=== PATIENT | male | born 1950 | race Caucasian/White ===

== ENCOUNTER → 2023-09-04 09:47 | Outpatient (REF) | payer MEDICARE, OTHER, SELFPAY ==
[2023-09-04 12:29] LABS: % Basophils 0.6 % (0-2); % Eosinophils 1.5 % (0-6); % Immature Granulocytes 0.4 % (0-0.5); % Lymphocytes 21.2 % (20.5-51.1); % Monocytes 11.4 % (1.7-9.3); % Neutrophils 64.9 % (42.2-75.2); Absolute Eosinophils 0.1 10^3/uL (0-0.7); Absolute Lymphocytes 1.1 10^3/uL (1.2-3.4); Absolute Monocytes 0.6 10^3/uL (0.1-0.6); Absolute Neutrophils 3.4 10^3/uL (1.4-6.5); Hematocrit 39.2 % (39.0-52.0); Hemoglobin 12.5 g/dL (13.0-18.0); Mean Corp Hgb Conc. 31.9 g/dL (33.0-37.0); Mean Corpuscular Hgb 23.5 pg (27.0-31.0); Mean Corpuscular Volume 73.8 fL (80.0-94.0); Mean Platelet Volume 10.4 fL (7.4-10.4); Nucleated Red Blood Cells % 0 % (-); Platelet Count 373 10^3/uL (130-400); Red Blood Cell Count 5.31 10^6/uL (4.70-6.10); Red Cell Dist. Width 17.2 % (11.5-14.5); White Blood Cell Count 5.2 10^3/uL (4.8-10.8)
[2023-09-04 12:41] LABS: Erythrocyte Sed Rate 10 mm/hour (0-20)
[2023-09-04 12:55] LABS: ALT (SGPT) 36 U/L (0-50); AST (SGOT) 33 U/L (17-59); Albumin 3.9 g/dl (3.5-5.0); Alkaline Phosphatase 97 U/L (38-126); Blood Urea Nitrogen 19 mg/dl (9-20); Carbon Dioxide 25 mmol/L (22-30); Chloride 106 mmol/L (98-107); Creatine Phosphokinase 436 U/L (55-170); GGTP 19 U/L (15-73); Glucose 103 mg/dl (70-99); HDL Cholesterol 49 mg/dl; Iron 40 ug/dl (49-181); LDL Cholesterol, Calculated 162 mg/dl; Magnesium 2.2 mg/dl (1.6-2.3); Phosphorus 3.5 mg/dl (2.5-4.5); Potassium 4.5 mmol/L (3.5-5.1); Sodium 135 mmol/L (135-145); Total Bilirubin 0.6 mg/dl (0.2-1.3); Total Cholesterol 224 mg/dl (50-199); Total Protein 6.7 g/dl (6.3-8.2); Triglyceride 66 mg/dl (10-149); Uric Acid 6.7 mg/dl (3.5-8.5); Very Low Density Lipoprotein 13 mg/dl (0-30); eGFR > 60.00
[2023-09-04 13:04] LABS: Percent Saturation 9 % (20-50); Total Iron Binding Capacity 403 ug/dl (261-462)
[2023-09-04 13:15] LABS: Free T4 1.27 ng/dl (0.78-2.19); Total Thyroxine 8.66 ug/dl (5.5-11.0); Vitamin D, 25-OH*** 39.2 ng/mL (30-80)
[2023-09-04 13:25] LABS: FSH < 0.7 mIU/ml (1.55-9.74); Luteinizing Hormone < 0.22 mIU/ml (1.24-7.80)
[2023-09-04 13:32] LABS: Ferritin 8.5 ng/ml (17.9-464.0)
[2023-09-04 13:39] LABS: TSH 1.66 uIU/ml (0.47-4.68)
[2023-09-04 14:03] LABS: Folate > 20.0 ng/ml (2.76-20); Vitamin B12 801 pg/ml (239-931)
[2023-09-04 14:55] LABS: Glycohemoglobin (HgbA1c) 6.7 % (4.0-5.6)
[2023-09-04 17:02] LABS: Rheumatoid Agglutinin Less Than 10 IU (<10 IU)
[2023-09-07 00:46] LABS: Aldolase 6.3 U/L (1.2-7.6); Angiotensin-1-converting Enzym 51 U/L (16-85)
[2023-09-07 00:50] LABS: % Free Testosterone 1.7 % (1.6-2.9); Free Testosterone 75 pg/mL (47-244); Sex Hormone Binding Globulin 39 nmol/L (19-76); Total Testosterone 444 ng/dL (300-720)
[2023-09-07 12:38] LABS: Myeloperoxidase Antibody 0 AU/mL (0-19); Serine Protease-3, IgG 1 AU/mL (0-19)
[2023-09-07 22:41] LABS: Myelin Assoc Glycoprotein Ab <1000 TU (0-999)
[2023-09-08 03:08] LABS: Asialo-GM1 Antibody 66 IV (0-50); GD1a Antibody 7 IV (0-50); GD1b Antibodies 19 IV (0-50); GM1 Antibody 59 IV (0-50); GM2 Antibody 10 IV (0-50); GQ1b Antibodies 19 IV (0-50)
[2023-09-08 15:13] LABS: Vitamin B6 Results 122.6 nmol/L (20.0-125.0)
== END ==
LOC: HWLAB 09:47
PROVIDERS: ATTENDING PHYSICIAN Internal Medicine Endocrinology, Diabetes & Metabolism; FAMILY PHYSICIAN Internal Medicine Geriatric Medicine; REFERRING PHYSICIAN Psychiatry & Neurology Neurology
DX: E11.65 Type 2 diabetes mellitus with hyperglycemia (principal); D51.9 Vitamin B12 deficiency anemia, unspecified; D64.9 Anemia, unspecified; E78.2 Mixed hyperlipidemia; I10 Essential (primary) hypertension; E55.9 Vitamin D deficiency, unspecified; Z79.899 Other long term (current) drug therapy; E06.3 Autoimmune thyroiditis
CPT/HCPCS: 36415; 80053; 80061; 82085; 82164; 82306; 82550; 82607; 82728; 82746; 82977; 83001; 83002; 83036; 83516; 83540; 83550; 83735; 83970; 84100; 84207; 84270; 84402; 84403; 84436; 84439; 84443; 84550; 85025; 85652; 86140; 86430

== ENCOUNTER → 2023-10-11 09:32 | Outpatient (REF) | payer MEDICARE, OTHER, SELFPAY ==
[2023-10-11 12:11] LABS: % Basophils 0.9 % (0-2); % Eosinophils 2.8 % (0-6); % Immature Granulocytes 0.4 % (0-0.5); % Lymphocytes 21.1 % (20.5-51.1); % Monocytes 12.3 % (1.7-9.3); % Neutrophils 62.5 % (42.2-75.2); Absolute Basophils 0.1 10^3/uL (0-0.2); Absolute Eosinophils 0.2 10^3/uL (0-0.7); Absolute Lymphocytes 1.2 10^3/uL (1.2-3.4); Absolute Monocytes 0.7 10^3/uL (0.1-0.6); Absolute Neutrophils 3.5 10^3/uL (1.4-6.5); Hemoglobin 14.1 g/dL (13.0-18.0); Mean Platelet Volume 10.5 fL (7.4-10.4); Nucleated Red Blood Cells % 0 % (-); Platelet Count 283 10^3/uL (130-400); Red Blood Cell Count 5.64 10^6/uL (4.70-6.10); Red Cell Dist. Width 22.4 % (11.5-14.5); White Blood Cell Count 5.6 10^3/uL (4.8-10.8)
[2023-10-11 12:16] LABS: Albumin 3.9 g/dl (3.5-5.0); Chloride 106 mmol/L (98-107); Potassium 4.2 mmol/L (3.5-5.1); Sodium 134 mmol/L (135-145)
[2023-10-11 12:23] LABS: C-Reactive Protein < 5.00 mg/L (0.0-10.00)
[2023-10-11 12:27] LABS: ALT (SGPT) 39 U/L (0-50); AST (SGOT) 32 U/L (17-59); Alkaline Phosphatase 83 U/L (38-126); Blood Urea Nitrogen 22 mg/dl (9-20); Calcium 9.4 mg/dl (8.4-10.2); Carbon Dioxide 25 mmol/L (22-30); Glucose 107 mg/dl (70-99); HDL Cholesterol 45 mg/dl; LDL Cholesterol, Calculated 53 mg/dl; Magnesium 2.1 mg/dl (1.6-2.3); Phosphorus 4.4 mg/dl (2.5-4.5); Total Bilirubin 0.6 mg/dl (0.2-1.3); Total Cholesterol 110 mg/dl (50-199); Total Protein 6.7 g/dl (6.3-8.2); Triglyceride 60 mg/dl (10-149); Very Low Density Lipoprotein 12 mg/dl (0-30); eGFR > 60.00
[2023-10-11 12:38] LABS: Creatine Phosphokinase 327 U/L (55-170); Iron 162 ug/dl (49-181); Percent Saturation 48 % (20-50); Total Iron Binding Capacity 336 ug/dl (261-462); Uric Acid 6.7 mg/dl (3.5-8.5)
[2023-10-11 12:55] LABS: FSH < 0.7 mIU/ml (1.55-9.74); Free T4 1.16 ng/dl (0.78-2.19); Luteinizing Hormone < 0.22 mIU/ml (1.24-7.80); Vitamin D, 25-OH*** 45.9 ng/mL (30-80)
[2023-10-11 13:06] LABS: Erythrocyte Sed Rate 15 mm/hour (0-20)
[2023-10-11 13:17] LABS: Ferritin 22.1 ng/ml (17.9-464.0)
[2023-10-11 13:33] LABS: Normal RBC Morphology No
[2023-10-11 13:34] LABS: Hypochromasia 1+; Ovalocytes FEW; Polychromasia 1+
[2023-10-11 14:21] LABS: Glycohemoglobin (HgbA1c) 5.8 % (4.0-5.6)
[2023-10-13 00:15] LABS: % Free Testosterone 1.7 % (1.6-2.9); Aldolase 6.8 U/L (1.2-7.6); Free Testosterone 61 pg/mL (47-244); Sex Hormone Binding Globulin 39 nmol/L (19-76); Total Testosterone 365 ng/dL (300-720)
[2023-10-15 06:47] LABS: Free T4 by Equil Dialysis 1.8 ng/dL (1.1-2.4)
== END ==
LOC: HWLAB 09:32
PROVIDERS: ATTENDING PHYSICIAN Internal Medicine Endocrinology, Diabetes & Metabolism; FAMILY PHYSICIAN Internal Medicine Geriatric Medicine; REFERRING PHYSICIAN Urology
DX: E29.1 Testicular hypofunction (principal); E61.1 Iron deficiency; E11.65 Type 2 diabetes mellitus with hyperglycemia; E78.2 Mixed hyperlipidemia; I10 Essential (primary) hypertension; E55.9 Vitamin D deficiency, unspecified
CPT/HCPCS: 36415; 80053; 80061; 82085; 82306; 82550; 82728; 83001; 83002; 83036; 83540; 83550; 83735; 84100; 84270; 84402; 84403; 84439; 84550; 85025; 85652; 86140

== ENCOUNTER → 2023-11-02 12:26 | Outpatient (REF) | payer MEDICARE, OTHER, SELFPAY ==
[2023-11-02 15:31] LABS: Creatine Phosphokinase 522 U/L (55-170)
[2023-11-02 15:34] LABS: % Basophils 0.4 % (0-2); % Eosinophils 1.6 % (0-6); % Immature Granulocytes 0.6 % (0-0.5); % Lymphocytes 14.4 % (20.5-51.1); % Monocytes 10.6 % (1.7-9.3); % Neutrophils 72.4 % (42.2-75.2); Absolute Eosinophils 0.2 10^3/uL (0-0.7); Absolute Immature Granulocytes 0.1 10^3/uL (0-0.05); Absolute Lymphocytes 1.5 10^3/uL (1.2-3.4); Absolute Monocytes 1.1 10^3/uL (0.1-0.6); Absolute Neutrophils 7.5 10^3/uL (1.4-6.5); Hematocrit 46.9 % (39.0-52.0); Hemoglobin 15.5 g/dL (13.0-18.0); Mean Corpuscular Hgb 26.4 pg (27.0-31.0); Mean Corpuscular Volume 79.9 fL (80.0-94.0); Mean Platelet Volume 10.6 fL (7.4-10.4); Nucleated Red Blood Cells % 0 % (-); Platelet Count 241 10^3/uL (130-400); Red Blood Cell Count 5.87 10^6/uL (4.70-6.10); Red Cell Dist. Width 22.3 % (11.5-14.5); White Blood Cell Count 10.3 10^3/uL (4.8-10.8)
[2023-11-04 19:31] LABS: Capillary Hgb Electrophoresis Not Performed; Sickle Cell Solubility Reflex Not Performed
== END ==
LOC: HWLAB 12:26
PROVIDERS: ATTENDING PHYSICIAN Internal Medicine Geriatric Medicine
DX: E78.2 Mixed hyperlipidemia (principal); Z13.31 Encounter for screening for depression; E03.9 Hypothyroidism, unspecified; E61.1 Iron deficiency; R06.83 Snoring
CPT/HCPCS: 36415; 82550; 83021; 85025

== ENCOUNTER → 2023-11-23 09:01 | Outpatient (REF) | payer MEDICARE, OTHER, SELFPAY ==
[2023-11-23 12:01] LABS: Urine Albumin Negative (Neg - Trace); Urine Bilirubin Negative (Negative); Urine Character Clear (Clear); Urine Color Yellow; Urine Glucose Negative (Negative); Urine Ketone Negative (Negative); Urine Leukocyte Negative (Negative); Urine Nitrite Negative (Negative); Urine Occult Blood Negative (Negative); Urine Specific Gravity 1.015 (<1.030); Urine Urobilinogen Negative (Neg - 1+); Urine pH 6.5 (5.0-9.0)
[2023-11-23 12:19] LABS: ALT (SGPT) 37 U/L (0-50); AST (SGOT) 35 U/L (17-59); Albumin 3.8 g/dl (3.5-5.0); Alkaline Phosphatase 95 U/L (38-126); Blood Urea Nitrogen 26 mg/dl (9-20); Calcium 9.1 mg/dl (8.4-10.2); Carbon Dioxide 24 mmol/L (22-30); Chloride 107 mmol/L (98-107); Glucose 111 mg/dl (70-99); HDL Cholesterol 47 mg/dl; LDL Cholesterol, Calculated 112 mg/dl; Potassium 4.3 mmol/L (3.5-5.1); Sodium 137 mmol/L (135-145); Total Bilirubin 0.5 mg/dl (0.2-1.3); Total Cholesterol 171 mg/dl (50-199); Total Protein 6.5 g/dl (6.3-8.2); Triglyceride 64 mg/dl (10-149); Very Low Density Lipoprotein 12 mg/dl (0-30); eGFR > 60.00
[2023-11-23 12:34] LABS: Vitamin D, 25-OH*** 39.5 ng/mL (30-80)
[2023-11-23 12:48] LABS: TSH 1.64 uIU/ml (0.47-4.68)
[2023-11-23 13:20] LABS: Glycohemoglobin (HgbA1c) 6.1 % (4.0-5.6)
== END ==
LOC: HWLAB 09:01
PROVIDERS: ATTENDING PHYSICIAN Internal Medicine Geriatric Medicine
DX: E03.9 Hypothyroidism, unspecified (principal); E78.2 Mixed hyperlipidemia; E61.1 Iron deficiency; Z79.899 Other long term (current) drug therapy
CPT/HCPCS: 36415; 80053; 80061; 81003; 82306; 83036; 84443

== ENCOUNTER → 2024-01-22 13:47 | Outpatient (REF) | payer MEDICARE, OTHER, SELFPAY ==
[2024-01-22 15:52] LABS: % Basophils 0.3 % (0-2); % Eosinophils 1.9 % (0-6); % Immature Granulocytes 0.5 % (0-0.5); % Lymphocytes 16.2 % (20.5-51.1); % Monocytes 11.8 % (1.7-9.3); % Neutrophils 69.3 % (42.2-75.2); Absolute Eosinophils 0.2 10^3/uL (0-0.7); Absolute Lymphocytes 1.4 10^3/uL (1.2-3.4); Absolute Neutrophils 6.1 10^3/uL (1.4-6.5); Hematocrit 44.2 % (39.0-52.0); Mean Corp Hgb Conc. 33.9 g/dL (33.0-37.0); Mean Corpuscular Hgb 27.3 pg (27.0-31.0); Mean Corpuscular Volume 80.5 fL (80.0-94.0); Mean Platelet Volume 10.9 fL (7.4-10.4); Nucleated Red Blood Cells % 0 % (-); Platelet Count 267 10^3/uL (130-400); Red Blood Cell Count 5.49 10^6/uL (4.70-6.10); Red Cell Dist. Width 14.6 % (11.5-14.5); White Blood Cell Count 8.8 10^3/uL (4.8-10.8)
[2024-01-22 15:56] LABS: Blood Urea Nitrogen 20 mg/dl (9-20); Calcium 9.4 mg/dl (8.4-10.2); Carbon Dioxide 24 mmol/L (22-30); Chloride 104 mmol/L (98-107); Glucose 89 mg/dl (70-99); Potassium 4.8 mmol/L (3.5-5.1); Sodium 137 mmol/L (135-145); eGFR > 60.00
[2024-01-22 16:06] LABS: NT-proBNP 98.2 pg/ml
== END ==
LOC: HWLAB 13:47
PROVIDERS: ATTENDING PHYSICIAN Nurse Practitioner Family
DX: M79.604 Pain in right leg (principal); R22.43 Localized swelling, mass and lump, lower limb, bilateral; L03.115 Cellulitis of right lower limb
CPT/HCPCS: 36415; 80048; 83880; 85025; 85379

== ENCOUNTER → 2024-01-23 09:48 | Outpatient (REF) | payer MEDICARE, OTHER, SELFPAY | LOC: RAD 09:48 | PROVIDERS: ATTENDING PHYSICIAN Nurse Practitioner Family | DX: R79.89 Other specified abnormal findings of blood chemistry (principal); I87.2 Venous insufficiency (chronic) (peripheral) | CPT/HCPCS: 93970 ==

== ENCOUNTER → 2024-02-19 10:02 | Outpatient (REF) | payer MEDICARE, OTHER, SELFPAY ==
[2024-02-19 12:47] LABS: HDL Cholesterol 40 mg/dl; LDL Cholesterol, Calculated 60 mg/dl; Total Cholesterol 109 mg/dl (50-199); Triglyceride 46 mg/dl (10-149); Very Low Density Lipoprotein 9 mg/dl (0-30)
== END ==
LOC: HWLAB 10:02
PROVIDERS: ATTENDING PHYSICIAN Internal Medicine Cardiovascular Disease; FAMILY PHYSICIAN Internal Medicine Geriatric Medicine; REFERRING PHYSICIAN Internal Medicine Endocrinology, Diabetes & Metabolism
DX: E78.2 Mixed hyperlipidemia (principal)
CPT/HCPCS: 36415; 80061

== ENCOUNTER → 2024-11-26 09:47 | Outpatient (REF) | payer MEDICARE, OTHER, SELFPAY ==
[2024-11-26 12:31] LABS: % Basophils 0.7 % (0-2); % Immature Granulocytes 0.3 % (0-0.5); % Lymphocytes 22.7 % (20.5-51.1); % Monocytes 10.3 % (1.7-9.3); Absolute Basophils 0.1 10^3/uL (0-0.2); Absolute Eosinophils 0.2 10^3/uL (0-0.7); Absolute Lymphocytes 1.6 10^3/uL (1.2-3.4); Absolute Monocytes 0.7 10^3/uL (0.1-0.6); Absolute Neutrophils 4.4 10^3/uL (1.4-6.5); Hematocrit 47.6 % (39.0-52.0); Hemoglobin 15.8 g/dL (13.0-18.0); Mean Corp Hgb Conc. 33.2 g/dL (33.0-37.0); Mean Corpuscular Hgb 27.5 pg (27.0-31.0); Mean Corpuscular Volume 82.8 fL (80.0-94.0); Mean Platelet Volume 11.1 fL (7.4-10.4); Nucleated Red Blood Cells % 0 % (-); Platelet Count 234 10^3/uL (130-400); Red Blood Cell Count 5.75 10^6/uL (4.70-6.10); Red Cell Dist. Width 14.6 % (11.5-14.5); White Blood Cell Count 6.9 10^3/uL (4.8-10.8)
[2024-11-26 13:25] LABS: Urine Albumin Negative (Neg - Trace); Urine Bilirubin Negative (Negative); Urine Character Clear (Clear); Urine Color Yellow; Urine Glucose Negative (Negative); Urine Ketone Negative (Negative); Urine Leukocyte Negative (Negative); Urine Nitrite Negative (Negative); Urine Occult Blood Negative (Negative); Urine Specific Gravity 1.015 (<1.030); Urine Urobilinogen Negative (Neg - 1+)
[2024-11-26 13:56] LABS: ALT (SGPT) 46 U/L (0-50); AST (SGOT) 33 U/L (17-59); Albumin 3.9 g/dl (3.5-5.0); Alkaline Phosphatase 75 U/L (38-126); Blood Urea Nitrogen 21 mg/dl (9-20); Calcium 9.1 mg/dl (8.4-10.2); Carbon Dioxide 25 mmol/L (22-30); Chloride 109 mmol/L (98-107); Glucose 109 mg/dl (70-99); HDL Cholesterol 43 mg/dl; LDL Cholesterol, Calculated 56 mg/dl; Potassium 4.6 mmol/L (3.5-5.1); Sodium 139 mmol/L (135-145); Total Bilirubin 0.7 mg/dl (0.2-1.3); Total Cholesterol 111 mg/dl (50-199); Total Protein 6.6 g/dl (6.3-8.2); Triglyceride 63 mg/dl (10-149); Very Low Density Lipoprotein 12 mg/dl (0-30); eGFR > 60.00
[2024-11-26 14:08] LABS: Glycohemoglobin (HgbA1c) 6.2 % (4.0-5.6)
[2024-11-26 14:13] LABS: Free T4 1.34 ng/dl (0.78-2.19)
[2024-11-26 14:24] LABS: Microalbumin, Random Urine 1.9 mg/dl (0.6-1.7); Microalbumin/creatinine Ratio 20.7 mg/g
[2024-11-26 14:26] LABS: TSH 2.13 uIU/ml (0.47-4.68)
== END ==
LOC: HWLAB 09:47
PROVIDERS: ATTENDING PHYSICIAN Urology; FAMILY PHYSICIAN Nurse Practitioner Family; REFERRING PHYSICIAN Internal Medicine Geriatric Medicine
DX: E11.9 Type 2 diabetes mellitus without complications (principal); E78.2 Mixed hyperlipidemia; Z13.31 Encounter for screening for depression; E03.9 Hypothyroidism, unspecified; M62.81 Muscle weakness (generalized); M60.861 Other myositis, right lower leg; E61.1 Iron deficiency; Z13.89 Encounter for screening for other disorder; R06.83 Snoring; Z99.89 Dependence on other enabling machines and devices; E29.1 Testicular hypofunction
CPT/HCPCS: 36415; 80053; 80061; 81003; 82043; 82570; 83036; 84403; 84439; 84443; 85025